=== PATIENT | female | born 1990 | race African-American/Black ===

== ENCOUNTER 2021-03-23 09:55 | Emergency (ER) | payer OTHER ==
[~2021-03-23] VITALS: Ht 162.6 cm; Wt 108.0 kg
[2021-03-23] MEDS ORDERED: AMOXICILLIN500 MG PO (10:31)
[2021-03-23 10:41] VITALS: BP 160/98
== END 2021-03-23 10:40 | disposition home or self-care (01) ==
LOC: FSED 10:23
DX: J02.9 Acute pharyngitis, unspecified (principal); R03.0 Elevated blood-pressure reading, without diagnosis of hypertension
CPT/HCPCS: 99283

== ENCOUNTER 2023-12-10 00:56 | Emergency (ER) | payer MEDICARE, OTHER ==
[~2023-12-10] VITALS: Ht 162.6 cm; Wt 107.1 kg
[~2023-12-10 00:56] MED LIST: AMOXICILLIN500 MG PO
[2023-12-10 01:32] VITALS: TEMP 97.8
[2023-12-10] MEDS ORDERED: METOPROLOL SUCC50 MG PO (02:16)
[2023-12-10] MEDS: AMLODIPINE BESYLATE 5 MG TAB PO ONE (02:32)
[2023-12-10 03:45] VITALS: PULSE 80; RESP 17
[2023-12-10 03:57] VITALS: BP 189/107; PULSE 78; RESP 17; TEMP 98.2; O2SAT 100
== END 2023-12-10 04:30 | disposition home or self-care (01) ==
LOC: FSED 01:32
DX: M25.561 Pain in right knee (principal); S83.8X1A Sprain of other specified parts of right knee, initial encounter; M79.642 Pain in left hand; M79.641 Pain in right hand; X50.1XXA Overexertion from prolonged static or awkward postures, initial encounter; I10 Essential (primary) hypertension; E66.9 Obesity, unspecified
CPT/HCPCS: 99283